=== PATIENT | female | born 1955 | race Caucasian/White ===

== ENCOUNTER → 2016-11-28 | Outpatient (CLI) | payer OTHER ==
--- NOTE | ~2016-11-28 | ESTC ---
Cardiac Perfusion Imaging Demographics Patient Name GRACY Nogueira Gender Female Patient Number [id number] Race Visit Number [id number] Ethnicity Corporate ID Room Number Accession Number [id number] Height Date of 1955 Weight Age 61 year(s) BSA Referring Physician Antony Enriquez MD BMI Interpreting Germaine Heath MD Date of study 11/28/2016 Physician Supervising /GIANLUCA Sotomayor NM Technologist Evelina Benson APRN Ordering Physician Germaine Heath MD Stress Alcira Olson bike technician [facility] Stress ECG Reading Raymon Sotomayor Nurse Aleta Freire RN Physician SUMAYA The procedure was explained in detail to the patient. Risks, complications and alternative treatments were reviewed. Written consent was obtained. Medications Reviewed with Patient prior to Procedure. Procedure Procedure Type: Nuclear Stress Test:Pharmacological, Lexiscan, Cardiolite Stress Test Procedure Start time: 11/28/2016 08:06 Risk Factors The patient risk factors include:obesity, hypertension and dyslipidemia. Conclusions Summary Cardiolite SPECT images demonstrates homogenous uptake of radioactive tracer. There is no evidence of inducible reversible defect to suggest ischemia and no evidence of underlying fixed defect. TID is reported increased at 1.19 but gross inspection does not show any increase in diastolic dimension. Gated images demonstrate normal left ventricular systolic function, LVEF is 69% without regional wall motion abnormalities. Stress Protocols Resting ECG RSR without ST or T wave changes Resting HR:76 bpm Resting BP:120/80 mmHg Pre-stress physical exam: Complainin of chest discomfort occurs with or without activity. No real shortness of breath. Stress Protocol:Pharmacologic Peak HR:112 bpm HR response: Appropriate Predicted HR: 158 bpm BP response: Appropriate % of predicted HR: 71 Reason for termination:Infusion complete ECG Findings RSR without ST or T wave changes Arrhythmias None Symptoms No symptoms with Lexiscan infusion. Stress Interpretation Stress supervision and interpretation provided by Dyan Ennis APRN . Appropriate hemodynamic response to Lexiscan. No significant ST-T wave changes with Lexiscan. ECG portion is negative for ischemia by diagnostic criteria. Imaging Results Applied corrections - Motion correction applied High risk findings Summed scores - Summed stress score: 14 - Summed rest score: 9 - Summed difference score: 5 Stress ejection Ejection fraction:69 % EDV :117 ml ESV :36 ml Stroke volume :81 ml LV mass :149 gr Imaging Protocols Rest Stress Isotope:Tc99m Sestamibi IV Isotope: Tc99m Sestamibi IV Isotope dose:14.4 mCi Isotope dose:45 mCi Date:11/28/2016 07:12 Date:11/28/2016 08:44 Technique: SPECT Technique: Gated Supine SPECT Supine Scan Time:45-60 minutes post Scan Time:45-60 minutes post injection injection Procedure Medications - Regadenoson (Lexiscan) 0.4 mg IV over 10-15 sec. I.V. . Medical History Admission Data Admission date: 11/28/2016 Admission Time: 06:58 Hospital Status: Outpatient. Signatures dtt: Kumar Herron (cardio) dtd: 11/28/16 0806 Physician Self Edit
== END | disposition disaster alternative care site (69) ==
LOC: GRAD 06:58
DX: R07.9 Chest pain, unspecified (principal); I10 Essential (primary) hypertension; E78.5 Hyperlipidemia, unspecified; E66.9 Obesity, unspecified
CPT/HCPCS: A9500; J2785

== ENCOUNTER → 2017-04-18 | Outpatient (CLI) | payer OTHER ==
[2017-04-18 08:34] LABS: ALBUMIN 4.1 gm/dL (3.5-5.0); CALCIUM 8.8 mg/dL (8.5-10.5); TOTAL BILIRUBIN 0.6 mg/dL (0.0-1.5)
== END | disposition disaster alternative care site (69) ==
LOC: GBCOE 07:30 → GLAB 07:30 → GBCOE 08:00
PROVIDERS: Student in an Organized Health Care Education/Training Program
DX: Z12.31 Encounter for screening mammogram for malignant neoplasm of breast (principal); I10 Essential (primary) hypertension
CPT/HCPCS: G0202